=== PATIENT | female | born 1990 | race Caucasian/White ===

== ENCOUNTER 2025-07-20 13:32 | Emergency (ER) | payer MEDICAID, SELFPAY ==
[2025-07-20 13:42] VITALS: BP 148/75; PULSE 85; RESP 16; TEMP 36.6; O2SAT 98
[2025-07-20 14:39] VITALS: BP 158/93; PULSE 88
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
--- NOTE | 2025-07-20 15:45 | DI.CT_ITS ---
Exam(s) CT THORACIC SPINE RECONS CT CHEST WO EXAM: CT CHEST WO and CT thoracic spine recons CLINICAL HISTORY: R sided chest wall pain. TECHNIQUE: Imaging protocol: Axial computed tomography images were obtained and coronal and sagittal reformatted images were created and reviewed. Lung Computer Aided Detection (CAD) was utilized. COMPARISON: There are no priors for comparison. FINDINGS: Tracheobronchial tree: Patent where visualized. No bronchiectasis is present. Pulmonary parenchyma: There is a tiny right pleural effusion and adjacent atelectasis. The lungs are otherwise clear. No architectural distortion. Mediastinum and Dora: No dominant adenopathy or fluid collection. The esophagus is unremarkable. Thyroid gland: Unremarkable. Pleura: There is no pneumothorax. There is no left pleural effusion. Heart: The heart is not dilated. No coronary artery calcifications are seen. No pericardial effusion. Aorta: Thoracic aorta non-dilated. Upper abdomen: Unremarkable. Lymph nodes: Within normal limits. Soft tissues: Unremarkable. Bones:Within normal limits for the patient's age. There is an acute nondisplaced fracture of the posterolateral aspect of the right 8th rib. There are old nonunited right rib fractures. There is a healing fracture of the right 5th rib laterally. CT thoracic spine recons: There is no acute fracture or subluxation. Mild degenerative changes are seen in the thoracic spine. IMPRESSION: 1. There is an acute nondisplaced fracture of the posterior aspect of the right 8th rib. 2. Old united and subacute fractures involving the right 5th through 7th ribs. 3. There is no pneumothorax. 4. Small right pleural effusion and right basilar atelectasis. RADIATION DOSE DELIVERED: 182.77mGy.cm Total DLP 182.77mGy.cm Total DLP DATA REPOSITORY: All CT scans at this facility are submitted to the National Radiology Data Registry (NRDR) Dose Index Registry (DIR) with the [employer] ([employer]). RADIATION OPTIMIZATION: All CT scans at this facility use at least one of these dose optimization techniques: automated exposure control; mA and/or kV adjustment per patient size (includes targeted exams where dose is matched to clinical indication); or iterative reconstruction.
[2025-07-20] MEDS: Lidocaine 5% Patch 1 PATCH TP (17:38)
[2025-07-20 17:39] VITALS: BP 146/85; PULSE 66; RESP 16; O2SAT 99
== END 2025-07-20 17:40 | disposition home or self-care (01) ==
LOC: ER 18:06
PROVIDERS: Emergency Provider Nurse Practitioner Family; PCP Family Medicine
DX: S22.31XA Fracture of one rib, right side, initial encounter for closed fracture (principal); X58.XXXA Exposure to other specified factors, initial encounter; J90 Pleural effusion, not elsewhere classified; J98.11 Atelectasis
CPT/HCPCS: 99283; 99284; 81025; 71250